=== PATIENT | male | born 2000 | race African-American/Black ===

== ENCOUNTER 2021-01-01 14:46 | Emergency (ER) | payer SELFPAY ==
[~2021-01-01] VITALS: Ht 187 cm; Wt 84.0 kg
[2021-01-01 15:15] VITALS: BP 118/82
[2021-01-01] MEDS ORDERED: PENI500T PO (15:28)
--- NOTE | 2021-01-01 15:28 | ED EENT ---
History of Present Illness General Chief Complaint: Dental Problems/Pain Stated Complaint: ABCESS TOOTH Source: patient Exam Limitations: no limitations History of Present Illness Date Seen by Provider: Jan 01, 2021 Time Seen by Provider: 15:15 Initial Comments 20-year-old male with no significant past medical history coming in due to dental pain. Is been ongoing for the past week and is getting worse. The pain is sharp, constant, and better when he takes hydrocodone or ibuprofen. He tried to call multiple dentists, but he does not insurance, and he says [facility] was unable to schedule at this time. Denies any fever, facial swelling, trismus, difficulty swallowing, voice changes, headache, throat pain, or any other concerns. Allergies and Home Medications Allergies Coded Allergies: No Known Drug Allergies (Unverified , 01/01/21) Home Medications Penicillin V Potassium 500 Mg Tablet, 500 MG PO QID Prescribed by: CONCEPCIÓN SINGLETON on 01/01/21 1528 Patient Home Medication List Home Medication List Reviewed: Yes Review of Systems Review of Systems Constitutional: No fever Eyes: Denies Blurred Vision Ears: Denies Pain Nose: denies pain Mouth: other (Dental pain on the bottom left side of his teeth) Throat: denies pain Respiratory: No cough, No short of breath Cardiovascular: No chest pain Gastrointestinal: No diarrhea Musculoskeletal: No back pain Skin: No rash Neurological: Denies Anxiety, Denies Depressed Hematologic/Lymphatic: No Symptoms Reported Immunological/Allergic: no symptoms reported All Other Systems Reviewed Negative Unless Noted: Yes Past [id number] Hx Patient Social History Tobacco Use?: No Physical Exam Vital Signs Vital Signs - First Documented 01/01/21 15:15 Pulse 51 Resp 18 B/P (MAP) 118/82 (94) Pulse Ox 99 O2 Delivery Room Air Height, Weight, BMI Height: '" Weight: lbs. oz. kg; BMI Method: General Appearance: WD/WN, no apparent distress Eyes: bilateral eye normal inspection Ears: bilateral ear auricle normal Nose: normal inspection Mouth/Throat: pharynx normal, dental tenderness; No mandibular swelling, No tonsillar swelling, No trismus, No uvula swelling, No voice changes Neck: non-tender, full range of motion, supple, normal inspection Cardiovascular: regular rate, rhythm, no murmur Respiratory: chest non-tender, lungs clear, normal breath sounds, no respiratory distress, no accessory muscle use Gastrointestinal: normal bowel sounds, non tender, soft, no organomegaly, no pulsatile mass Neurologic/Psychiatric: alert, normal mood/affect Skin: normal color, warm/dry Progress/Results/Core Measures Results/Orders Vital Signs/I&O 01/01/21 15:15 Pulse 51 Resp 18 B/P (MAP) 118/82 (94) Pulse Ox 99 O2 Delivery Room Air Progress Progress Note : Progress Note 20-year-old male with above history coming in due to dental pain. ABCs were intact and vitals are stable on presentation. Physical exam with significant dental caries on tooth #17 with tenderness over this tooth. Floor of his mouth is soft with no elevation of his tongue. No trismus, no voice changes, no tenderness along his neck, no swelling anywhere that I noted. No obvious abscess on exam. I believe he is stable for discharge with outpatient follow-up with community health given he does not have insurance. I will send him with a prescription for penicillin to [facility] and I showed him how to fill this with good Rx. Should take ibuprofen and Tylenol for pain. He was then discharged home in stable condition with strict return precautions. Departure Impression Primary Impression: Dental caries Disposition: HOME, SELF-CARE Condition: Stable Departure-Patient Inst. Decision time for Depature: 15:25 Referrals: NO,LOCAL PHYSICIAN (PCP/Family) Primary Care Physician Patient Instructions: Dental Pain (DC) Add. Discharge Instructions: You were seen in the emergency department for an infected tooth. You absolutely need to see the dentist to have this taken out otherwise the infection will get significantly worse. I sent an antibiotic to [facility] on . Take 600 mg of ibuprofen every 6 hours and 1000 mg of Tylenol every 6 hours as well in between that for pain control. Any fever or significant swelling in your face you can come back to the emergency department. All discharge instructions reviewed with patient and/or family. Voiced understanding. Scripts Penicillin V Potassium (Penicillin V Potassium) 500 Mg Tablet 500 MG PO QID for 7 Days, #28 TAB 0 Refills Prov: CONCEPCIÓN SINGLETON MD 01/01/21 CONCEPCIÓN SINGLETON MD Jan 01, 2021 15:28
== END 2021-01-01 15:32 | disposition home or self-care (01) ==
LOC: ER 14:48
DX: K02.9 Dental caries, unspecified (principal)
CPT/HCPCS: 99282